=== PATIENT | female | born 1955 | race Caucasian/White ===

== ENCOUNTER → 2023-10-19 | Emergency (ER) | payer BC, OTHER ==
[~2023-10-19] MED LIST: BUPIVACAINE 0.5% PF 10 ML VIAL ONE; HYDROCODONE/APAP 7.5/325 MG TAB ONE; LIDOCAINE 1% 20 ML MDV ONE
--- NOTE | 2023-10-19 14:49 | RAD REPORT ---
EXAM DESCRIPTION: RAD - Foot Right 3 View - 10/19/2023 2:02 pm CLINICAL HISTORY: Right foot pain status post injury FINDINGS: Oblique fracture distal aspect of the second proximal phalanx which appears moderately dis placed. Angulation is present at the fracture site. Evaluation of the second PIP joint is somewhat limited due to overlapping bone but no gross dislocati on noted
--- NOTE | 2023-10-19 19:01 | ER ---
Nurse's Notes [facility] Name: Graciela Arce Age: 68 yrs Sex: Female : 1955 Arrival Date: 10/19/2023 Time: 13:22 Bed 11 Private MD: Diagnosis: Displaced fracture of proximal phalanx of right lesser toe(s), initial encounter for closed fracture Presentation: 10/18 13:46 Chief complaint: Patient states: Pt injured right 2nd toe at approx 1330. Pt states she tl4 kicked her bedpost. Right 2nd toe is displaced to the right. +pain. Coronavirus screen: At this time, the client does not indicate any symptoms associated with coronavirus-19. Ebola Screen: No symptoms or risks identified at this time. Initial Sepsis Screen: Does the patient meet any 2 criteria? No. Patient's initial sepsis screen is negative. Does the patient have a suspected source of infection? No. Patient's initial sepsis screen is negative. Risk Assessment: Do you want to hurt yourself or someone else? Patient reports no desire to harm self or others. Onset of symptoms was October 19, 2023 at 13:30. 13:46 Method Of Arrival: Ambulatory tl4 13:46 Acuity: YASHIRA 4 tl4 Triage Assessment: 13:49 General: Appears in no apparent distress. Behavior is calm, cooperative. Pain: tl4 Complains of pain in right foot. EENT: No signs and/or symptoms were reported regarding the EENT system. Neuro: No deficits noted. Cardiovascular: No deficits noted. Respiratory: No deficits noted. GI: No deficits noted. No signs and/or symptoms were reported involving the gastrointestinal system. : No deficits noted. No signs and/or symptoms were reported regarding the genitourinary system. Derm: No deficits noted. No signs and/or symptoms reported regarding the dermatologic system. Musculoskeletal: Reports pain in right foot. Injury Description: Deformity sustained to right foot. Historical: - Allergies: 19:10 No Known Allergies; ha1 - Immunization history:: Adult Immunizations unknown. - Social history:: Smoking status: unknown. Screenin:07 [facility] ED Fall Risk Assessment (Adult) History of falling in the last 3 months, ha1 including since admission Yes- single mechanical fall (1 pt) Confusion or Disorientation No (0 pts) Intoxicated or Sedated No (0 pts) Impaired Gait No (0 pts) Mobility Assist Device Used No (0 pt) Altered Elimination No (0 pt) Score/Fall Risk Level 0 - 2 = Low Risk Oriented to surroundings, Maintained a safe environment, Educated pt \T\ family on fall prevention, incl call for assistance when getting out of bed. Abuse screen: Denies threats or abuse. Denies injuries from another. Nutritional screening: No deficits noted. Tuberculosis screening: No symptoms or risk factors identified. Assessment: 19:09 Reassessment: Patient and/or family updated on plan of care and expected duration. Pain ha1 level reassessed. Patient is alert, oriented x 3, equal unlabored respirations, skin warm/dry/pink. Patient states feeling better. Patient states symptoms have improved. 19:10 Reassessment: Per provider patient did not want to wait for discharge papers and left vc1 after discharge instructions from provider. Vital Signs: 13:46 BP 124 / 74; Pulse 96; Resp 16; Temp 98.9; Pulse Ox 97% on R/A; Weight 79.38 kg; Height tl4 5 ft. 5 in. ; Pain 7/10; 13:46 Body Mass Index 29.12 (79.38 kg, 165.1 cm) tl4 13:46 Pain Scale: Adult tl4 ED Course: 13:26 Patient arrived in ED. im 13:27 Myriam Gil FNP-C is PHCP. kb 13:27 Nael Srinivasan DO is Attending Physician. kb 13:49 Triage completed. tl4 13:49 Arm band placed on right wrist. tl4 14:02 Foot Right 3 View XRAY In Process Unspecified. EDMS 18:19 Jean-Pierre Cruz, RN is Primary Nurse. bp 19:00 Patient has correct armband on for positive identification. Placed in gown. Bed in low ha1 position. Call light in reach. Side rails up X 1. Adult w/ patient. 19:08 No provider procedures requiring assistance completed. Patient did not have IV access ha1 during this emergency room visit. 19:09 Provided Education on: follow up with orthopedic . ha1 19:14 Foot Right 2 View XRAY In Process Unspecified. EDMS Administered Medications: 18:19 Drug: Bupivacaine Infiltration (0.5 %) 1 vials 10 ml Infiltration once Volume: 10 ml; bp Route: Infiltration; 18:19 Drug: Lidocaine Infiltration (1 %) 1 vials 5 ml Infiltration once; to bedside Volume: 5 bp ml; Route: Infiltration; 18:31 Drug: Hydrocodone-Acetaminophen PO (7.5 mg-325 mg) 1 tabs PO once Route: PO; bp 18:31 Follow up: Response: No adverse reaction bp Medication: 19:08 VIS not applicable for this client. ha1 Outcome: 19:00 Discharge ordered by MD. ventura 19:08 Discharged to home ambulatory, with family, ha1 19:08 Condition: stable 19:08 Discharge instructions given to patient, family, Instructed on discharge instructions, follow up and referral plans. 19:10 Patient left the ED. 1 Signatures: Dispatcher [employer] EDMS Myriam Gil, HIGHBALLER-C HIGHBALLER-Jean-Pierre Schaefer, RN RN bp Joselin Betancourt RN RN vc1 Kate Helm RN RN 1 Tracy Loya Toni RN RN tl4
--- NOTE | 2023-10-19 19:01 | EDPHYS ---
Physician Documentation [facility] Name: Graciela Arce Age: 68 yrs Sex: Female : 1955 Arrival Date: 10/19/2023 Time: 13:22 Bed 11 Private MD: ED Physician Nael Srinivasan HPI: 10/18 13:37 This 68 yrs old Female presents to ER via Unassigned with complaints of Foot Injury - kb Right big toe. 13:37 Pt is a 68 year old female who presents for deformity to second digit on right foot. kb States she was walking fast and hit it on something. Denies fall or any other injuries. . Historical: - Allergies: 19:10 No Known Allergies; ha1 - Immunization history:: Adult Immunizations unknown. - Social history:: Smoking status: unknown. ROS: 13:36 Constitutional: As per HPI kb 13:36 MS/extremity: Positive for deformity, pain, of the right second toe, 13:36 All other systems are negative, Exam: 13:36 Constitutional: This is a well developed, well nourished patient who is awake, alert, kb and in no acute distress. Head/Face: Normocephalic, atraumatic. ENT: Moist Mucous membranes Cardiovascular: Regular rate Respiratory: Respirations even and unlabored. No increased work of breathing. Talking in full sentences Skin: Warm, dry with normal turgor. Normal color. Neuro: Awake and alert, GCS 15, oriented to person, place, time, and situation. Moves all extremities. Normal gait. 13:36 Musculoskeletal/extremity: Extremities: grossly normal except: noted in the right second toe: deformity, pain, ROM: limited active range of motion, Circulation is intact in all extremities. Sensation intact. Weight bearing: able to fully bear weight, Vital Signs: 13:46 BP 124 / 74; Pulse 96; Resp 16; Temp 98.9; Pulse Ox 97% on R/A; Weight 79.38 kg; Height tl4 5 ft. 5 in. ; Pain 7/10; 13:46 Body Mass Index 29.12 (79.38 kg, 165.1 cm) tl4 13:46 Pain Scale: Adult tl4 Procedures: 18:12 Nerve block: (digital) of right second toe Medication: Lidocaine 1% without epinephrine kb Marcaine 0.5%, Amount: 2 mls were injected, Effect: the patient has resolution of the pain, Set up for procedure. Performed by Myriam STONE Patient tolerated well. 18:55 Reduction: of the right second toe, using traction, manipulation, Immobilized with pooja tape. Patient tolerated well. MDM: 13:27 Patient medically screened. kb 13:36 Differential diagnosis: dislocation, closed fracture. Data reviewed: vital signs, kb nurses notes. 14:49 Independent interpretation of the following test(s) in the Emergency Department X-Ray: kb My interpretation is Displaced fracture to proximal phalanx on second digit of right foot. 10/18 13:30 Order name: Foot Right 3 View XRAY; Complete Time: 14:49 kb 10/18 18:46 Order name: Foot Right 2 View XRAY kb Administered Medications: 18:19 Drug: Bupivacaine Infiltration (0.5 %) 1 vials 10 ml Infiltration once Volume: 10 ml; bp Route: Infiltration; 18:19 Drug: Lidocaine Infiltration (1 %) 1 vials 5 ml Infiltration once; to bedside Volume: 5 bp ml; Route: Infiltration; 18:31 Drug: Hydrocodone-Acetaminophen PO (7.5 mg-325 mg) 1 tabs PO once Route: PO; bp 18:31 Follow up: Response: No adverse reaction bp Disposition: 16:32 I was immediately available on-site in the Emergency Department for consultation in the ms3 care of the patient. Disposition Summary: 10/19/23 19:00 Discharge Ordered Notes: Location: Home kb Condition: Stable kb Diagnosis - Displaced fracture of proximal phalanx of right lesser toe(s), initial encounter kb for closed fracture Followup: kb - With: Emergency Department - When: As needed - Reason: Worsening of condition Followup: kb - With: Private Physician - When: 2 - 3 days - Reason: Recheck today's complaints, Continuance of care, Re-evaluation by your physician Discharge Instructions: - Discharge Summary Sheet kb - Toe Fracture, [id number] kb Forms: - Medication Reconciliation Form kb - Thank You Letter kb - Antibiotic Education kb - Prescription Opioid Use kb - Patient Portal Instructions kb - Leadership Thank You Letter kb Signatures: Dispatcher [employer] EDMyriam Bhatt FNP-C FNP-Jean-Pierre Schaefer RN RN Nael Barclay DO DO ms3 Helm, Kate, RN RN ha1
[2023-10-19 19:20] VITALS: BP 124/74; TEMP 98.9; O2SAT 97
--- NOTE | 2023-10-19 19:27 | RAD REPORT ---
EXAM DESCRIPTION: RAD - Foot Right 2 View - 10/19/2023 7:13 pm CLINICAL HISTORY: Foot pain FINDINGS: Good alignment of the fracture second proximal phalanx. No dislocation
== END ==
LOC: ER 13:22
PROC: 0QS Lower Bones, Reposition (ICD-10-PCS; principal; 2023-10-19)
DX: S92.511A Displaced fracture of proximal phalanx of right lesser toe(s), initial encounter for closed fracture (principal)
CPT/HCPCS: 73630; 73620; 28515; J2001; 64450; 99283